=== PATIENT | female | born 1945 | race American Indian/Alaskan Native ===

== ENCOUNTER 2016-12-18 19:55 | Inpatient (IN) | payer MEDICARE ==
--- NOTE | 2016-12-18 20:28 | XRay Report ---
FINAL REPORT PROCEDURE: XR CHEST 1V AP TECHNIQUE: Chest radiograph anteroposterior view. CPT 40524 HISTORY: Shortness of breath COMPARISON: No prior studies are available for comparison. FINDINGS: Blunting of left CP angle is likely due to a moderate pleural effusion with atelectasis or pneumonia. Likely changes of COPD are present. Heart appears normal in size. No pneumothorax is seen. IMPRESSION: Moderate left pleural effusion is suspected with atelectasis or pneumonia. There may be changes of COPD.
[2016-12-18] MEDS ORDERED: DUONEB 0.5 MG-3 MG/3 ML SOLN IH ONE ×2 (20:37)
[2016-12-18 20:51] LABS: Basophils % (Auto) 0.7 % (0.0-1.8); Hematocrit 39.7 % (30.3-42.9); Hemoglobin 13.8 gm/dl (10.1-14.3); Mean Corpuscular HGB Conc 35 % (30-34); Mean Corpuscular Hemoglobin 30 pg (28-32); Mean Corpuscular Volume 87 fl (79-97); Platelet Count 177 K/mm3 (140-440); Red Blood Count 4.57 M/mm3 (3.65-5.03); White Blood Count 9.1 K/mm3 (4.5-11.0)
[2016-12-18 21:06] LABS: Anion Gap 15 mmol/L; Blood Urea Nitrogen 9 mg/dL (7-17); Calcium 9.2 mg/dL (8.4-10.2); Carbon Dioxide 31 mmol/L (22-30); Chloride 100.4 mmol/L (98-107); Glucose 117 mg/dL (65-100); Potassium 3.9 mmol/L (3.6-5.0); Sodium 142 mmol/L (137-145)
[2016-12-18] MEDS ORDERED: ROBITUSSIN AC PO ONE (21:17)
--- NOTE | 2016-12-18 21:20 | Emergency Department Report ---
HPI - General Chief Complaint: Dyspnea/Respdistress Time Seen by Provider: 12/18/16 21:05 - HPI HPI: This is a 71-year-old -Cam[place] female presents to the emergency department by tomorrow EMS service with complaint of a one-week history of shortness breath, one to 2 week history of a productive cough, as well as some intermittent wheezing and chest tightness. The patient has been using her albuterol inhaler and nebulized treatments at home without much relief. She has a history of COPD for which she is 2 L oxygen dependent at home. She also has a history of HIV and hypertension. She is a former smoker, having quit in 2010. She gets her primary care needs from [facility]. No recent travel or sick contacts at home. She denies any fever, nausea, vomiting, diaphoresis but does have lower extremity swelling. She denies any history of CT, CVA, PE/DVT, CHF. ED Past Medical Hx - Past Medical History Previous Medical History?: Yes Hx Hypertension: Yes Hx COPD: Yes Hx HIV: Yes - Surgical History Past Surgical History?: No - Social History Smoking Status: Former Smoker Substance Use Type: Alcohol, Prescribed ED Review of Systems ROS: Stated complaint: DIFFICULTY BREATHING Other details as noted in HPI Comment: All other systems reviewed and negative Constitutional: denies: chills, fever Eyes: denies: eye pain, eye discharge, vision change ENT: denies: ear pain, throat pain Respiratory: cough, shortness of breath, wheezing Cardiovascular: chest pain, edema Gastrointestinal: denies: abdominal pain, nausea, diarrhea Genitourinary: denies: urgency, dysuria, discharge Musculoskeletal: denies: back pain, joint swelling, arthralgia Skin: denies: rash, lesions Neurological: denies: headache, weakness, paresthesias Physical Exam - Physical Exam Vital Signs: Vital Signs 12/18/16 12/18/16 12/18/16 19:55 20:01 20:04 Temperature 97.9 F Pulse Rate 89 Pulse Rate [ Bases] Respiratory 20 Rate Respiratory Rate [Bases] Blood Pressure 159/87 159/87 Blood Pressure 159/87 [Right] O2 Sat by Pulse 91 92 94 Oximetry 12/18/16 12/18/16 12/18/16 20:13 20:23 20:42 Temperature Pulse Rate 101 H Pulse Rate [ 98 H Bases] Respiratory 20 Rate Respiratory 18 Rate [Bases] Blood Pressure Blood Pressure [Right] O2 Sat by Pulse 94 Oximetry Physical Exam: GENERAL: The patient is well-developed well-nourished. HEENT: Normocephalic. Atraumatic. Extraocular motions are intact. Patient has moist mucous membranes. Pupils equal reactive to light bilaterally. NECK: Supple. Trachea is midline. CHEST/LUNGS: Moderate wheezing throughout the chest. There is a productive cough heard during examination. No tachypnea or accessory muscle use. There is no respiratory distress noted. HEART/CARDIOVASCULAR: Regular. There is no tachycardia. There is no gallop rub or murmur. ABDOMEN: Abdomen is soft, nontender. Patient has normal bowel sounds. There is no abdominal distention. SKIN: Pitting edema to the bilateral lower extremities. NEURO: The patient is awake, alert, and oriented. The patient is cooperative. The patient has no focal neurologic deficits. The patient has normal speech. MUSCULOSKELETAL: There is no tenderness or deformity. There is no limitation range of motion. There is no evidence of acute injury. ED Course Vital Signs 12/18/16 12/18/16 12/18/16 19:55 20:01 20:04 Temperature 97.9 F Pulse Rate 89 Pulse Rate [ Bases] Respiratory 20 Rate Respiratory Rate [Bases] Blood Pressure 159/87 159/87 Blood Pressure 159/87 [Right] O2 Sat by Pulse 91 92 94 Oximetry 12/18/16 12/18/16 12/18/16 20:13 20:23 20:42 Temperature Pulse Rate 101 H Pulse Rate [ 98 H Bases] Respiratory 20 Rate Respiratory 18 Rate [Bases] Blood Pressure Blood Pressure [Right] O2 Sat by Pulse 94 Oximetry ED Medical Decision Making - Lab Data Result diagrams: 12/18/16 20:28 12/18/16 20:28 - EKG Data -: EKG Interpreted by Me EKG shows normal: sinus rhythm, axis, intervals, QRS complexes, ST-T waves ( nonspecific ST-T changes) Rate: tachycardia (102 bpm) - EKG Data When compared to previous EKG there are: previous EKG unavailable Interpretation: nonspecific ST-T wave dana - Radiology Data Radiology results: report reviewed, image reviewed interpreted by me: Chest x-ray shows some mild cardiomegaly but otherwise no overt pleural effusions, pneumothorax or pneumonia. CT angiography of the chest does not show any pulmonary embolism. There is a fatty infiltration of the liver and 2 hypodense lesions in the liver. These are of uncertain significance per more likely benign and malignant. - Medical Decision Making 71-year-old female presents emergency Department with 1-2 week history of shortness of breath, chest tightness, lower extremity swelling, cough. Labs show an elevation in the carbon dioxide and a elevated and equivocal d-dimer. While the chest x-ray did not show any acute process a CT angiography of the chest was also done. CT showed no sign of pulmonary embolism. There is liver lesions of uncertain significance and fatty infiltration of the liver. On physical exam the patient does have moderate bronchospasm. She was given some steroids, breathing treatments and still has some shortness of breath and wheezing. She'll be admitted to hospital for further evaluation and treatment has been accepted for admission by the hospitalist, Dr. Del Cid. - Differential Diagnosis CT, CHF, PE, Pneumonia, Asthma, COPD Critical Care Time: No Critical care attestation.: If time is entered above; I have spent that time in minutes in the direct care of this critically ill patient, excluding procedure time. ED Disposition Clinical Impression: COPD exacerbation, Bronchospasm, Chest tightness Hypertension Qualifiers: Hypertension type: essential hypertension Qualified Code(s): I10 - Essential ( primary) hypertension Disposition: OP ADMIT IP TO THIS HOSP Is pt being admited?: Yes Condition: Stable Time of Disposition: 00:19
[2016-12-18] MEDS ORDERED: NACL ONE (22:26)
--- NOTE | 2016-12-18 23:25 | Cat Scan Report ---
FINAL REPORT PROCEDURE: CT ANGIO CHEST TECHNIQUE: Computerized tomographic angiography of the chest was performed after the IV injection of iodinated nonionic contrast including image processing. The image data was postprocessed using 2-dimensional multiplanar reformatted (MPR) and 3-dimensional (MIP and/or volume rendered) techniques. HISTORY: SOB, elevated d-dimer COMPARISON: Chest x-ray from the same day FINDINGS: Mild changes of COPD are seen. There is mild scarring in the lung apices. No pneumothorax or pleural effusion is seen. Incidental note is made of fatty infiltration of the liver 2 vague hypodense area is present. One of these is seen anteriorly in the left hepatic lobe on image 113 of series 3 and the other is near the sona hepatitis in the right hepatic lobe measuring 1.7 cm. These may be hemangioma or focal areas greater fatty infiltration. Solid nodules cannot be excluded. Contrast-enhanced MRI of the liver may be useful on a nonemergent basis. Heart is likely normal in size. Trace pericardial effusion is seen. Calcified granuloma are seen in the mediastinum. The thoracic aorta is normal in size without evidence of dissection. No pulmonary embolus is seen. Prominent fat pads are seen with increased fat in the lower middle mediastinum. Findings could be due to steroid administration or abnormal cortisol metabolism. IMPRESSION: No pulmonary embolus is seen. There is fatty infiltration of the liver and 2 hypodense lesions in the liver. These are of uncertain significance but are more likely benign than malignant. Further evaluation with contrast-enhanced MRI using hemangioma protocol is recommended on a nonemergent basis.
--- NOTE | 2016-12-18 23:55 | History and Physical Report ---
History of Present Illness Date of examination: 12/18/16 Date of admission: 12/18/16 Chief complaint: Increasing SOB and wheezing for 3 days. History of present illness: HPI: This is a 71-year-old -Cypriot female presents to the emergency department by EMS service with complaint of a one-week history of shortness breath, one to 2 week history of a productive cough, as well as some intermittent wheezing and chest tightness. The patient has been using her albuterol inhaler and nebulized treatments at home without much relief. She has a history of COPD for which she is 2 L oxygen dependent at home. She also has a history of HIV and hypertension. She is a former smoker, having quit in 2010. No recent travel or sick contacts at home. She denies any fever, nausea, vomiting, diaphoresis but does have lower extremity swelling. She denies any history of [place], CVA, PE/DVT, CHF. Patient moved from [facility] to live with her daughter and attributes her increased resp distress in summer to allergies sec to pine trees and she wants to move back to [place].Moved to [place] 5 years ago. ED Past Medical Hx - Past Medical History Previous Medical History?: Yes Hx Hypertension: Yes Hx COPD: Yes Hx HIV: Yes - Surgical History Past Surgical History?: No - Social History Smoking Status: Former Smoker Substance Use Type: Alcohol, Prescribed ED Review of Systems ROS: Stated complaint: DIFFICULTY BREATHING Other details as noted in HPI Comment: All other systems reviewed and negative Constitutional: denies: chills, fever Eyes: denies: eye pain, eye discharge, vision change ENT: denies: ear pain, throat pain Respiratory: cough, shortness of breath, wheezing Cardiovascular: chest pain, edema Gastrointestinal: denies: abdominal pain, nausea, diarrhea Genitourinary: denies: urgency, dysuria, discharge Musculoskeletal: denies: back pain, joint swelling, arthralgia Skin: denies: rash, lesions Neurological: denies: headache, weakness, paresthesias 14 point review of systems done. Past History Past Medical History: COPD, hypertension, other (HIV) Medications and Allergies Allergies Allergy/AdvReac Type Severity Reaction Status Date / Time Penicillins AdvReac Unknown Unverified 09/05/14 12:11 Sulfa (Sulfonamide AdvReac Unknown Unverified 09/05/14 12:11 Antibiotics) Active Meds: Active Medications Heparin Sodium (Porcine) (Heparin) 5,000 unit SUB-Q Q8HR JERICA Review of Systems All systems: negative Exam - Constitutional Vitals: Temp Pulse Resp BP Pulse Ox 97.9 F 98 H 18 159/87 94 12/18/16 20:04 12/18/16 20:42 12/18/16 20:42 12/18/16 20:04 12/18/16 20:23 General appearance: Present: no acute distress, well-nourished - EENT Eyes: Present: PERRL ENT: hearing intact, clear oral mucosa - Neck Neck: Present: supple, normal ROM - Respiratory Respiratory effort: normal Respiratory: bilateral: diminished, rhonchi, wheezing - Cardiovascular Heart rate: 80 Rhythm: regular Heart Sounds: Present: S1 & S2. Absent: rub, click - Extremities Extremities: pulses symmetrical, No edema Peripheral Pulses: within normal limits - Abdominal General gastrointestinal: Present: soft, non-tender, non-distended, normal bowel sounds Female genitourinary: Present: normal - Integumentary Integumentary: Present: clear, warm, dry - Musculoskeletal Musculoskeletal: gait normal, strength equal bilaterally - Psychiatric Psychiatric: appropriate mood/affect, intact judgment & insight - Neurologic Neurologic: CNII-XII intact, moves all extremities - Allied Health Allied health notes reviewed: nursing Results - Labs CBC & Chem 7: 12/18/16 20:28 12/18/16 20:28 Labs: Laboratory Last Values WBC 9.1 K/mm3 (4.5-11.0) 12/18/16 20:28 RBC 4.57 M/mm3 (3.65-5.03) 12/18/16 20:28 Hgb 13.8 gm/dl (10.1-14.3) 12/18/16 20:28 Hct 39.7 % (30.3-42.9) 12/18/16 20:28 MCV 87 fl (79-97) 12/18/16 20:28 MCH 30 pg (28-32) 12/18/16 20:28 MCHC 35 % (30-34) H 12/18/16 20:28 RDW 15.0 % (13.2-15.2) 12/18/16 20:28 Plt Count 177 K/mm3 (140-440) 12/18/16 20:28 Lymph % (Auto) 24.9 % (13.4-35.0) 12/18/16 20: [place] % (Auto) 7.3 % (0.0-7.3) 12/18/16 20: Eos % (Auto) 13.0 % (0.0-4.3) H 12/18/16 20:28 Baso % (Auto) 0.7 % (0.0-1.8) 12/18/16 20: Lymph # 2.3 K/mm3 (1.2-5.4) 12/18/16 20: [place] # 0.7 K/mm3 (0.0-0.8) 12/18/16: Eos # 1.2 K/mm3 (0.0-0.4) H 12/18/16 20: Baso # 0.1 K/mm3 (0.0-0.1) 12/18/16 20: Seg Neutrophils % 54.1 % (40.0-70.0) 12/18/16 20: Seg Neutrophils # 4.9 K/mm3 (1.8-7.7) 12/18/16 20:28 D-Dimer 658.12 ng/mlDDU (0-234) H 12/18/16 21:31 Sodium 142 mmol/L (137-145) 12/18/16 20:28 Potassium 3.9 mmol/L (3.6-5.0) 12/18/16 20: Chloride 100.4 mmol/L (98-107) 12/18/16 20:28 Carbon Dioxide 31 mmol/L (22-30) H 12/18/16 20:28 Anion Gap 15 mmol/L 12/18/16 20:28 BUN 9 mg/dL (7-17) 12/18/16 20:28 Creatinine 0.9 mg/dL (0.7-1.2) 12/18/16 20: Estimated GFR > 60 ml/min 12/18/16 20: BUN/Creatinine Ratio 10.00 % 12/18/16 20: Glucose 117 mg/dL (65-100) H 12/18/16 20:28 Calcium 9.2 mg/dL (8.4-10.2) 06/10/17 20:28 Troponin T < 0.010 ng/mL (0.00-0.029) 12/18/16 20:28 NT-Pro-B Natriuret Pep 46.94 pg/mL (0-900) 12/18/16 21:31 - Imaging and Cardiology EKG: report reviewed (Sinus Tach) Chest x-ray: report reviewed (moderate left pleural effusion and small atelectasis. Possible pneumonia but more in favor of atelectasis) Assessment and Plan Assessment and plan: Assessment and plan: 1: Acute respiratory failure: Patient has oxygen level of 76 which is consistent with hypoxia. Patient started on duo nebs every 6 hours around-the- clock and every 3 hours when necessary. Patient also started on intravenous Levaquin 750 mg IV piggyback every 24 hours and Solu-Medrol 60 mg every 8 hours IV. Also Tessalon Perles for cough. 2: COPD exacerbation: Patient started on duo nebs IV Levaquin and IV Solu- Medrol. 3: Hypertension: Home medication not reconciled. We will start on losartan 100 mg once a day. Add antihypertensives as necessary. 4: HIV: No antiretrovirals mentioned. We will reconcile whenever available. 5: DVT prophylaxis: Patient started on Lovenox 40 mg subcutaneous once a day. Advance Directives: Yes (full code) VTE prophylaxis?: Chemical Plan of care discussed with patient/family: Yes
[2016-12-19] MEDS ORDERED: DUONEB 0.5 MG-3 MG/3 ML SOLN IH ONE (00:20)
[2016-12-19] MEDS ORDERED: DUONEB 0.5 MG-3 MG/3 ML SOLN IH PRN (01:42)
[2016-12-19] MEDS ORDERED: MILK OF MAGNESIA PO PRN (01:44)
[2016-12-19] MEDS ORDERED: DULCOLAX PR PRN (01:44)
[2016-12-19] MEDS ORDERED: ZOFRAN IV PRN (01:44)
[2016-12-19] MEDS ORDERED: PERCOCET 5/325 PO PRN (01:44)
[2016-12-19] MEDS ORDERED: TYLENOL PO PRN (01:44)
[2016-12-19] MEDS ORDERED: DILAUDID IV PRN (01:44)
[2016-12-19] MEDS ORDERED: PROVENTIL IH PRN (01:48)
[2016-12-19] MEDS: DUONEB 0.5 MG-3 MG/3 ML SOLN IH SCH ×4 (02:04→21:32)
[2016-12-19] MEDS: PEPCID PO SCH ×3 (02:14→22:42)
[2016-12-19] MEDS: TESSALON PERLES PO SCH ×3 (02:14→17:16)
[2016-12-19 03:16] LABS: ISTAT Base Excess 7; ISTAT HCO3 31.3; ISTAT PCO2 48.8 (35-45); ISTAT PH 7.414 (7.35-7.45); ISTAT PO2 76 (80-105); ISTAT SO2 95; ISTAT TCO2 33
[2016-12-19] MEDS ORDERED: HEPARIN SUB-Q SCH (06:00)
[2016-12-19] MEDS ORDERED: WATER FOR INJ (PF) 10 ML ONE (06:05)
[2016-12-19] MEDS: COZAAR PO SCH (10:07)
[2016-12-19] MEDS: LEVAQUIN 750MG/150ML 750 MG/150 ML BAG IV SCH (10:26)
--- NOTE | 2016-12-19 13:03 | Consultation ---
History of Present Illness Consult date: 12/19/16 Requesting physician: ELTON BRUNO Reason for consult: COPD, other (Acute Hypoxemic Respiratory Failure) History of present illness: PULMONARY/CCM CONSULT NOTE (Full dictation # [id number]) Please see dictated notes for full details Past History Past Medical History: COPD, hypertension, other (HIV) Medications and Allergies Allergies Allergy/AdvReac Type Severity Reaction Status Date / Time Penicillins AdvReac Unknown Unverified 09/05/14 12:11 Sulfa (Sulfonamide AdvReac Unknown Unverified 09/05/14 12:11 Antibiotics) Active Meds: Active Medications Acetaminophen (Tylenol) 650 mg PO Q4H PRN PRN Reason: Pain MILD(1-3)/Fever >100.5/BATISTA Albuterol (Proventil) 2.5 mg IH Q3HRT PRN PRN Reason: Wheezing Albuterol/Ipratropium (Duoneb 0.5 Mg-3 Mg/3 Ml Soln) 1 ampul IH Q6HRT [facility] Benzonatate (Tessalon Perles) 100 mg PO Q8H [facility] Last Admin: 12/19/16 10:06 Dose: 100 mg Bisacodyl (Dulcolax) 10 mg DC QDAY PRN PRN Reason: Constipation unrelieved by MOM Enoxaparin Sodium (Lovenox) 40 mg SUB-Q QDAY@2200 JERICA Famotidine (Pepcid) 20 mg PO BID [facility] Last Admin: 12/19/16 10:06 Dose: 20 mg Hydromorphone HCl (Dilaudid) 0.5 mg IV Q3H PRN PRN Reason: Pain , Severe (7-10) Levofloxacin/Dextrose (Levaquin 750mg/150ml) 750 mg in 150 mls @ 100 mls/hr IV Q24HR [facility] PRN Reason: Protocol Last Admin: 12/19/16 10:26 Dose: 100 mls/hr Losartan Potassium (Cozaar) 100 mg PO QDAY [facility] Last Admin: 12/19/16 10:07 Dose: 100 mg Magnesium Hydroxide (Milk Of Magnesia) 30 ml PO Q4H PRN PRN Reason: Constipation Methylprednisolone Sodium Succinate (Solu-Medrol) 60 mg IV Q8HR [facility] Last Admin: 12/19/16 06:12 Dose: 60 mg Ondansetron HCl (Zofran) 4 mg IV Q8H PRN PRN Reason: N/V unrelieved by Reglan Oxycodone/Acetaminophen (Percocet 5/325) 1 tab PO Q6H PRN PRN Reason: Pain, Moderate (4-6) Physical Examination Vital signs: Vital Signs Pulse Ox 91 12/18/16 19:55 Results - Laboratory Findings CBC and BMP: 12/18/16 20:28 12/18/16 20:28 ABG POC ABG pH 7.414 (7.35-7.45) 12/19/16 02:22 POC ABG pCO2 48.8 (35-45) H 12/19/16 02:22 POC ABG pO2 76 (80-105) L 12/19/16 02:22 POC ABG HCO3 31.3 12/19/16 02:22 POC ABG Total CO2 33 12/19/16 02:22 POC ABG O2 Sat 95 12/19/16 02:22 PT/INR, D-dimer D-Dimer 658.12 ng/mlDDU (0-234) H 12/18/16 21:31 Abnormal lab findings: Abnormal Labs 12/19/16 02:22 POC ABG pCO2 48.8 H POC ABG pO2 76 L
--- NOTE | 2016-12-19 15:27 | Progress Note ---
Assessment and Plan Assessment and plan: --Acute on chronic hypoxemic respiratory failure Oxygen titrated to O2 sats to more than 90%, nebulizers, steroids, antibiotics, cough medicine, inhalation steroids Pulmonary evaluation if needed --Acute COPD exacerbation/with acute bronchitis Nebulizers, oxygen, IV antibiotics and IV steroids --Hypertension; moderate control, continue current antihypertensives and when necessary medication, sodium diet --History of HIV; and follows health Department for her HIV medications, --Abnormal CT abdomen; fatty infiltration of the liver and 2 lesions in the liver[patient reports that they are old findings, we'll try to get reports from her previous physician] obtain MRI if needed --Morbid obesity; counseling done advised dietary modification and exercise as tolerated and weight reduction when medically stable --DVT prophylaxis with Lovenox Was the monitor the patient and adjust the management as needed Plan of care discussed with the patient as well as the nurse Possible discharge in 1-2 days if stable History Interval history: patient feels slightly better, complains of worsening shortness of breath Denies chest pain or palpitations Alert awake oriented 3 not in acute distress Hospitalist Physical - Constitutional Vitals: Temp Pulse Resp BP Pulse Ox 98.3 F 107 H 20 144/84 97 12/19/16 12:00 12/19/16 14:46 12/19/16 14:46 12/19/16 12:00 12/19/16 12:00 General appearance: Present: no acute distress, well-nourished, obese (morbidly obese) - EENT Eyes: Present: PERRL, EOM intact - Neck Neck: Present: supple, normal ROM - Respiratory Respiratory effort: normal Respiratory: bilateral: diminished, negative: rales, rhonchi, wheezing - Cardiovascular Rhythm: regular Heart Sounds: Present: S1 & S2 - Extremities Extremities: no ischemia, pulses intact, pulses symmetrical Peripheral Pulses: within normal limits - Abdominal General gastrointestinal: soft, non-tender, non-distended - Integumentary Integumentary: Present: clear, warm - Psychiatric Psychiatric: appropriate mood/affect, cooperative - Neurologic Neurologic: CNII-XII intact, moves all extremities Results - Labs CBC & Chem 7: 12/18/16 20:28 12/18/16 20:28 Labs: Laboratory Last Values WBC 9.1 K/mm3 (4.5-11.0) 12/18/16 20:28 RBC 4.57 M/mm3 (3.65-5.03) 12/18/16 20: Hgb 13.8 gm/dl (10.1-14.3) 12/18/16 20: Hct 39.7 % (30.3-42.9) 12/18/16 20: MCV 87 fl (79-97) 12/18/16 20: MCH 30 pg (28-32) 12/18/16 20: MCHC 35 % (30-34) H 12/18/16 20: RDW 15.0 % (13.2-15.2) 12/18/16: Plt Count 177 K/mm3 (140-440) 12/18/16: Lymph % (Auto) 24.9 % (13.4-35.0) 12/18/16: [place] % (Auto) 7.3 % (0.0-7.3) 12/18/16: Eos % (Auto) 13.0 % (0.0-4.3) H 12/18/16 20: Baso % (Auto) 0.7 % (0.0-1.8) 12/18/16: Lymph # 2.3 K/mm3 (1.2-5.4) 12/18/16: Walker # 0.7 K/mm3 (0.0-0.8) 12/18/16 20: Eos # 1.2 K/mm3 (0.0-0.4) H 12/18/16: Baso # 0.1 K/mm3 (0.0-0.1) 12/18/16 20: Seg Neutrophils % 54.1 % (40.0-70.0) 12/18/16 20: Seg Neutrophils # 4.9 K/mm3 (1.8-7.7) 12/18/16 20: D-Dimer 658.12 ng/mlDDU (0-234) H 12/18/16 21:31 POC ABG pH 7.414 (7.35-7.45) 12/19/16 02:22 POC ABG pCO2 48.8 (35-45) H 12/19/16 02:22 POC ABG pO2 76 (80-105) L 12/19/16 02:22 POC ABG HCO3 31.3 12/19/16 02:22 POC ABG Total CO2 33 12/19/16 02:22 POC ABG O2 Sat 95 12/19/16 02:22 POC ABG Base Excess 7 12/19/16 02:22 FiO2 28 % 12/19/16 02:22 Sodium 142 mmol/L (137-145) 12/18/16 20:28 Potassium 3.9 mmol/L (3.6-5.0) 12/18/16 20:28 Chloride 100.4 mmol/L (98-107) 12/18/16 20:28 Carbon Dioxide 31 mmol/L (22-30) H 12/18/16 20:28 Anion Gap 15 mmol/L 12/18/16 20:28 BUN 9 mg/dL (7-17) 12/18/16 20:28 Creatinine 0.9 mg/dL (0.7-1.2) 12/18/16 20:28 Estimated GFR > 60 ml/min 12/18/16 20:28 BUN/Creatinine Ratio 10.00 % 12/18/16 20:28 Glucose 117 mg/dL (65-100) H 12/18/16 20:28 Calcium 9.2 mg/dL (8.4-10.2) 12/18/16 20:28 Troponin T < 0.010 ng/mL (0.00-0.029) 12/18/16 20:28 NT-Pro-B Natriuret Pep 46.94 pg/mL (0-900) 12/18/16 21:31
[2016-12-19] MEDS: BROVANA NEBU IH SCH (21:36)
[2016-12-19] MEDS: LOVENOX SUB-Q SCH (22:42)
[2016-12-19] MEDS: SINGULAIR PO SCH (22:45)
[2016-12-20] MEDS: TESSALON PERLES PO SCH ×3 (02:23→17:14)
[2016-12-20] MEDS: DUONEB 0.5 MG-3 MG/3 ML SOLN IH SCH ×4 (02:26→19:55)
--- NOTE | 2016-12-20 03:20 | Consultation ---
PULMONARY CONSULTATION CONSULTING PHYSICIAN: Dr. Del Cid. REASON FOR CONSULTATION: COPD exacerbation. CHIEF COMPLAINT AND HISTORY OF PRESENT ILLNESS: The patient is a 71-year-old -Irish female. Past medical history is significant in this context for a diagnosis of COPD, who presented to the Emergency Room by emergency medical services complaining of a 1-week history of increasing shortness of breath. Also, she has noticed increase in cough in the preceding about 2 weeks, gradually increasing, mostly productive of clear thick whitish phlegm, but occasionally blood streaked specks in it. She is complaining of vague chest pain related to her coughing. She had been using her nebulizers at home. She also has oxygen at home, which she has been using; however, symptoms did not improve. As a result of the worsening symptoms, she came to the Emergency Room. In the Emergency Room, she was evaluated and essentially she was admitted for COPD exacerbation. She was wheezing. She was coughing. When I stopped by to see her, she was doing the same thing. She denied any nausea, vomiting, or overt aspiration prior to coming into the hospital. She denied any recent fevers or chills. She denied any sick contacts. She denied any recent long distance travel, but admitted to increasing lower extremity swelling bilaterally. That really again is as much of the history of presentation. I should mention she has a 24-jltt-dbkj-year smoking history, but has quit smoking for about 5-6 years now. PAST MEDICAL HISTORY: Significant again for hypertension and COPD. She is HIV positive. She is obese. She admits to a history of obstructive sleep apnea, for which she is not using her CPAP at this time. PAST SURGICAL HISTORY: Denied. MEDICATIONS: She was on at the time I stopped by to see her according to the medication administration record included the following: Tylenol 650 mg p.o. q. 4 hours p.r.n. mild pain, Proventil 2.5 mg inhaled q. 3 hours p.r.n. wheezing, DuoNeb treatments nebulized q. 6 hours, Tessalon Perles 100 mg p.o. q.8 hours scheduled, Lovenox 40 mg subcutaneous daily, Pepcid 20 mg p.o. b.i.d., Dilaudid 0.5 mg IV q. 3 hours p.r.n. severe pain, Levaquin 750 mg IV daily, Cozaar 100 mg p.o. daily, milk of magnesia p.r.n., Solu-Medrol 60 mg IV q. 8 hours, Zofran 4 mg IV q. 8 hours p.r.n. nausea and vomiting and Percocet 1 tablet 5/325 mg p.o. q. 6 hours p.r.n. moderate pain. ALLERGIES: TO PENICILLINS AND TO SULFA DRUGS. Nature of this allergy is unknown. DIET: Obese lady. Denies significant weight loss or gain in the preceding few weeks to months. FAMILY AND SOCIAL HISTORY: Lives in the community. She has a 90-pppy-cire-year tobacco smoking history, quit smoking about 6 years ago. Family history otherwise is noncontributory. Denies alcohol or illicit drug use or abuse. REVIEW OF SYSTEMS: No loss of consciousness. No new-onset seizures. No new onset focal weakness. No gross hematochezia or melena. No gross hematuria or dysuria. No hematemesis. She had the streaky hemoptysis. No palpitations. No seizures. Complete review of systems obtained. Pertinent positives and/or negatives as in body of history above, otherwise noncontributory. PHYSICAL EXAMINATION: VITAL SIGNS: At presentation, she was afebrile, temperature 97.9 Fahrenheit, pulse 103, respiratory rate 20, blood pressure 159/87 and oxygen sats 92%, inspired oxygen concentration was not recorded. HEAD, EYES, EARS, NOSE AND THROAT: Pupils are equal, round, about 4 mm, reactive to light. Extraocular muscle movements are intact. Oropharynx is a Mallampati #3 oropharynx. No significant posterior oropharyngeal erythema. Grossly, no palpable lymph nodes in the supraclavicular or submandibular lymph node chains. No gross jugular venous distention. LUNGS: Auscultation of both lung thomason, expiratory rhonchi and rales bilaterally. Occasional faint wheezing. Prolonged expiratory phase. HEART: Sounds 1 and 2 were heard at the time of my evaluation. They were regular in rate and rhythm. ABDOMEN: Soft, full. Bowel sounds are positive, nontender. EXTREMITIES: Without overt digital clubbing or cyanosis. She has trace to 1+ bipedal pitting edema. NEUROLOGICAL: The exam was grossly nonfocal. LABORATORY DATA: From my review are as follows: White cell count 9100, hemoglobin 13.8, hematocrit 39.7, platelets 177. No manual differential. D-dimer was elevated at 658. Arterial blood gas showed a pH of 7.41, pCO2 of 49, pO2 of 76 that was on 2 liters nasal cannula. Serum sodium 142, potassium 3.9, chloride 100, bicarbonate 31, BUN 9, creatinine 0.9, glucose 117. Troponin and BNP were within normal limits. Blood cultures were drawn. No growth to date. IMAGING DATA: Chest x-ray was done. I have reviewed the interpretation. Mentioned was moderate left pleural effusion with possible atelectasis. CTA of her chest was done. I am reviewing those films. The interpretation mentions 2 hypodense lesions within the liver. No PE. I do not see any gross filling defects indeed consistent with pulmonary emboli. I also do not see this pleural effusion as mentioned on the chest x-ray; however, there appears to be an area of atelectatic lung in the left lower lobe region. Lung windows motion artifact, septal or paraseptal emphysema, particularly in the upper lobes. No gross pneumothorax. No gross bony fractures. ASSESSMENT AND PLAN: We have an elderly lady in with an acute chronic obstructive pulmonary disease exacerbation. I do agree with current therapy. We will continue bronchodilators. I will add long-acting bronchodilators into the mix. We will continue systemic steroids. Hold on inhaled corticosteroids at this point in time. I believe there is also allergy component to her symptoms. I will go with Zyrtec actually and see if it works better than the loratadine that she uses at home. We will continue the empiric antibiotic therapy. I will send sputum for gram stain cultures and sensitivities. We will deploy bilevel positive airway pressure therapy at bedtime for her sleep apnea issues ____ her to follow up in the clinic post-discharge. She is appropriately on GI and DVT prophylaxis. I will complete this venous thromboembolic workup with lower extremity Dopplers in light of the swelling. Flu and pneumonia vaccination will be per protocol. I will also encourage her that she does not have any lung nodules. She does have lesions in her liver and those were needed to be followed up. Thank you very much for the consult. Dr. Del Cid will follow along and make further recommendations as picture progresses/becomes clearer. Continued tobacco abstinence was encouraged. JOB# [id number] LIOR/NTS
--- NOTE | 2016-12-20 03:32 | Admit Criteria Form ---
Admission Criteria Documentation: COPD Clinical Indications for Admission to Inpatient Care (Place 'X' for any and all applicable criteria): Admission is indicated for ANY ONE of the following (1)(2)(3): [X ]I. Acute exacerbation by high-risk comorbidity (e.g., pneumonia, dysrhythmia, heart failure, pleural effusion, pneumothorax) or severe underlying COPD (e.g., steroid dependent) [ ]II. Inpatient admission required rather than observation care (see Chronic Obstructive Pulmonary Disease: Observation Care) because of ANY ONE of the following: [ ]a) New or pre-existing signs or symptoms of COPD (eg, dyspnea or Tachypnea at rest or with minimal activity) that persist despite outpatient and observation care treatment [ ]b) New-onset hypoxemia (room air SaO2 less than 90%, PO2 less than 60 mm Hg (8.0 kPa)) that persists despite outpatient and observation care treatment [ ]c) Worsening of pre-existing hypoxemia (eg, new or increased requirement for supplemental oxygen to maintain oxygenation at baseline level) that persists despite outpatient and observation care treatment, with oxygen treatment needs performable only in acute inpatient setting [ ]d) Hypercarbia (PCO2 greater than 40 mm Hg (5.3 kPa))-induced respiratory acidosis (pH less than 7.35) that persists despite outpatient and observation care treatment [ ]e) Supplemental oxygen or respiratory treatments for over 24 hours that are performable only in acute inpatient setting [ ]f) Chest tube placement with active evacuation (e.g., suction, drainage) (5) [ ]g) Other condition, treatment or monitoring requiring inpatient admission [ ]III. Planned invasive surgical or diagnostic procedures requiring acute- care hospitalization [X ]IV. Acute respiratory failure (e.g., uncompensated hypercarbia, severe hypoxemia) [ ]V. Severe comorbid condition (e.g., severe steroid myopathy, acute vertebral fracture) that has acutely worsened pulmonary function [ ]. Confusion state, lethargy, obtundation, stupor or coma Extended stay beyond goal length of stay may be needed for (31)(32): [ ]a ) Respiratory Failure. [ ]b) Severe or persisting hypoxemia or hypercarbia [ ]c) Severe or persistent dyspnea [ ]d) Comorbidities (e.g. chronic heart failure, atrial fibrillation with rapid response, pneumonia) [ ]e) Malnutrition The original [facility] content created by [facility] has been revised. The portions of the content which have been revised are identified through the use of italic text or in bold, and [facility] has neither reviewed nor approved the modified material. All other unmodified content is copyright [facility]. Please see references footnoted in the original [facility] edition 2016 Admission Criteria Met: Yes
[2016-12-20 07:20] LABS: Basophils % (Auto) 0.2 % (0.0-1.8); Hemoglobin 13.8 gm/dl (10.1-14.3); Mean Corpuscular HGB Conc 34 % (30-34); Mean Corpuscular Hemoglobin 30 pg (28-32); Mean Corpuscular Volume 86 fl (79-97); Platelet Count 182 K/mm3 (140-440); Red Blood Count 4.63 M/mm3 (3.65-5.03); Red Cell Distribution Width 14.7 % (13.2-15.2); White Blood Count 13.7 K/mm3 (4.5-11.0)
[2016-12-20 07:33] LABS: Alanine Aminotransferase 35 units/L (7-56); Albumin 3.7 g/dL (3.9-5); Alkaline Phosphatase 77 units/L (35-129); Anion Gap 17 mmol/L; BUN/Creatinine Ratio 16.25; Blood Urea Nitrogen 13 mg/dL (7-17); Calcium 9.6 mg/dL (8.4-10.2); Carbon Dioxide 31 mmol/L (22-30); Chloride 98.2 mmol/L (98-107); Glucose 169 mg/dL (65-100); Potassium 3.8 mmol/L (3.6-5.0); Sodium 142 mmol/L (137-145); Total Protein 7.4 g/dL (6.3-8.2)
--- NOTE | 2016-12-20 07:50 | Vascular Lab Report ---
LOWER EXTREMITY VENOUS DUPLEX: REASON FOR EXAM: Swelling of the lower extremities. COMMENTS ON THE RIGHT: All veins visualized are freely compressible without evidence of internal echogenicity. Flow is spontaneous and phasic throughout. COMMENTS ON THE LEFT: All veins visualized are freely compressible without evidence of internal echogenicity. Flow is spontaneous and phasic throughout. IMPRESSION: No evidence of acute or chronic deep venous thrombosis in either lower extremity.
[2016-12-20] MEDS: BROVANA NEBU IH SCH ×2 (08:22→19:54)
[2016-12-20] MEDS: LEVAQUIN 750MG/150ML 750 MG/150 ML BAG IV SCH (09:42)
[2016-12-20] MEDS: COZAAR PO SCH (09:43)
[2016-12-20] MEDS: PEPCID PO SCH ×2 (09:43→21:08)
[2016-12-20] MEDS ORDERED: DILAUDID IV PRN (17:11)
--- NOTE | 2016-12-20 17:16 | Progress Note ---
Assessment and Plan Assessment and plan: --Acute on chronic hypoxemic respiratory failure Oxygen titrated to O2 sats to more than 90%, nebulizers, steroids, antibiotics, cough medicine, inhalation steroids Pulmonary evaluation if needed --Acute COPD exacerbation/with acute bronchitis Nebulizers, oxygen, IV antibiotics and IV steroids --Hypertension; moderate control, continue current antihypertensives and when necessary medication, sodium diet --History of HIV; and follows health Department for her HIV medications, --Abnormal CT abdomen; fatty infiltration of the liver and 2 lesions in the liver[patient reports that they are old findings, we'll try to get reports from her previous physician] obtain MRI if needed --Morbid obesity; counseling done advised dietary modification and exercise as tolerated and weight reduction when medically stable --DVT prophylaxis with Lovenox Was the monitor the patient and adjust the management as needed Plan of care discussed with the patient as well as the nurse Possible discharge in 1-2 days if stable History Interval history: Patient seen and evaluated this morning medical records reviewed No new events reported by the nursing staff, patient complains of mild shortness of breath significantly improved since yesterday Alert awake oriented 3 not in acute distress Vital signs reviewed stable Hospitalist Physical - Constitutional Vitals: Temp Pulse Resp BP Pulse Ox 97.3 F L 96 H 17 163/91 93 12/20/16 10:20 12/20/16 13:31 12/20/16 13:31 12/20/16 10:20 12/20/16 11:02 General appearance: Present: no acute distress, well-nourished, obese (morbidly obese) - EENT Eyes: Present: PERRL, EOM intact - Neck Neck: Present: supple, normal ROM - Respiratory Respiratory effort: normal Respiratory: bilateral: diminished, rhonchi, negative: rales, wheezing - Cardiovascular Rhythm: regular Heart Sounds: Present: S1 & S2 - Extremities Extremities: no ischemia, pulses intact, pulses symmetrical Peripheral Pulses: within normal limits - Abdominal General gastrointestinal: soft, non-tender, non-distended, normal bowel sounds - Integumentary Integumentary: Present: clear, warm - Psychiatric Psychiatric: appropriate mood/affect, cooperative - Neurologic Neurologic: CNII-XII intact, moves all extremities Results - Labs CBC & Chem 7: 12/20/16 06:36 12/20/16 06:36 Labs: Laboratory Last Values WBC 13.7 K/mm3 (4.5-11.0) H 12/20/16 06:36 RBC 4.63 M/mm3 (3.65-5.03) 12/20/16 06:36 Hgb 13.8 gm/dl (10.1-14.3) 12/20/16 06:36 Hct 40.0 % (30.3-42.9) 12/20/16 06:36 MCV 86 fl (79-97) 12/20/16 06:36 MCH 30 pg (28-32) 12/20/16 06:36 MCHC 34 % (30-34) 12/20/16 06:36 RDW 14.7 % (13.2-15.2) 12/20/16 06:36 Plt Count 182 K/mm3 (140-440) 12/20/16 06:36 Lymph % (Auto) 11.7 % (13.4-35.0) L 12/20/16 06:36 [place] % (Auto) 5.1 % (0.0-7.3) 12/20/16 06:36 Eos % (Auto) 0.0 % (0.0-4.3) 12/20/16 06:36 Baso % (Auto) 0.2 % (0.0-1.8) 12/20/16 06:36 Lymph # 1.6 K/mm3 (1.2-5.4) 12/20/16 06:36 [place] # 0.7 K/mm3 (0.0-0.8) 12/20/16 06:36 Eos # 0.0 K/mm3 (0.0-0.4) 12/20/16 06:36 Baso # 0.0 K/mm3 (0.0-0.1) 12/20/16 06:36 Seg Neutrophils % 83.0 % (40.0-70.0) H 12/20/16 06:36 Seg Neutrophils # 11.4 K/mm3 (1.8-7.7) H 12/20/16 06:36 D-Dimer 658.12 ng/mlDDU (0-234) H 12/18/16 21:31 POC ABG pH 7.414 (7.35-7.45) 12/19/16 02:22 POC ABG pCO2 48.8 (35-45) H 12/19/16 02:22 POC ABG pO2 76 (80-105) L 12/19/16 02:22 POC ABG HCO3 31.3 12/19/16 02:22 POC ABG Total CO2 33 12/19/16 02:22 POC ABG O2 Sat 95 12/19/16 02:22 POC ABG Base Excess 7 12/19/16 02:22 FiO2 28 % 12/19/16 02:22 Sodium 142 mmol/L (137-145) 12/20/16 06:36 Potassium 3.8 mmol/L (3.6-5.0) 12/20/16 06:36 Chloride 98.2 mmol/L (98-107) 12/20/16 06:36 Carbon Dioxide 31 mmol/L (22-30) H 12/20/16 06:36 Anion Gap 17 mmol/L 12/20/16 06:36 BUN 13 mg/dL (7-17) 12/20/16 06:36 Creatinine 0.8 mg/dL (0.7-1.2) 12/20/16 06:36 Estimated GFR > 60 ml/min 12/20/16 06:36 BUN/Creatinine Ratio 16.25 % 12/20/16 06:36 Glucose 169 mg/dL (65-100) H 12/20/16 06:36 Calcium 9.6 mg/dL (8.4-10.2) 12/20/16 06:36 Total Bilirubin 0.20 mg/dL (0.1-1.2) 12/20/16 06:36 AST 46 units/L (5-40) H 12/20/16 06:36 ALT 35 units/L (7-56) 12/20/16 06:36 Alkaline Phosphatase 77 units/L (35-129) 12/20/16 06:36 Troponin T < 0.010 ng/mL (0.00-0.029) 12/18/16 20:28 NT-Pro-B Natriuret Pep 46.94 pg/mL (0-900) 12/18/16 21:31 Total Protein 7.4 g/dL (6.3-8.2) 12/20/16 06:36 Albumin 3.7 g/dL (3.9-5) L 12/20/16 06:36 Albumin/Globulin Ratio 1.0 % 12/20/16 06:36
--- NOTE | 2016-12-20 19:13 | Progress Note ---
Assessment and Plan Patent resting on nasal canula. Still complaining shortness of breath.Patient has history of COPD, Hypertension and HIV +.O2 saturation 96% on 2 litres O2. - Patient Problems (1) COPD exacerbation Current Visit: Yes Status: Acute Plan to address problem: O2 2 litres via nasal canula. Albuterol/atrovent aerosol treatments q 6 hours. Continue I/V solumedral. Continue S/C Lovenox. Continue famotidine. Continue Levaquine. (2) Hypertension Current Visit: Yes Status: Acute Qualifiers: Hypertension type: essential hypertension Qualified Code(s): I10 - Essential (primary) hypertension Plan to address problem: Management as per primary care. (3) Sleep apnea Current Visit: Yes Status: Acute Qualifiers: Sleep apnea type: S Plan to address problem: Patient said she has sleep study as out patient. She said she is going to follow with brine tank operator as outpatient. Empirically placing her on BIPAP 16/6, rate 20, FIO2 28%. (4) HIV (human immunodeficiency virus infection) Current Visit: Yes Status: Acute Plan to address problem: Management as per primary and infectious diseases. Subjective Date of service: 12/20/16 Interval history: Patent resting on nasal canula. Still complaining shortness of breath.Patient has history of COPD, Hypertension and HIV +.O2 saturation 96% on 2 litres O2. Objective Vital Signs - 12hr 12/20/16 12/20/16 12/20/16 08:23 08:24 10:20 Temperature 97.3 F L Pulse Rate Pulse Rate [ 97 H Anterior Bilateral Throughout] Pulse Rate [ Left Radial] Pulse Rate [ 94 H Right Radial] Respiratory 16 Rate Respiratory 18 Rate [Anterior Bilateral Throughout] Blood Pressure [Left Arm] Blood Pressure 163/91 [Right Radial Artery] O2 Sat by Pulse 95 93 Oximetry 12/20/16 12/20/16 12/20/16 10:30 11:02 13:30 Temperature Pulse Rate 88 Pulse Rate [ 95 H Anterior Bilateral Throughout] Pulse Rate [ 94 H Left Radial] Pulse Rate [ Right Radial] Respiratory 16 Rate Respiratory 18 Rate [Anterior Bilateral Throughout] Blood Pressure [Left Arm] Blood Pressure [Right Radial Artery] O2 Sat by Pulse 93 Oximetry 12/20/16 12/20/16 13:31 18:58 Temperature Pulse Rate Pulse Rate [ 96 H Anterior Bilateral Throughout] Pulse Rate [ Left Radial] Pulse Rate [ Right Radial] Respiratory Rate Respiratory 17 Rate [Anterior Bilateral Throughout] Blood Pressure 192/92 [Left Arm] Blood Pressure [Right Radial Artery] O2 Sat by Pulse Oximetry Constitutional: no acute distress, alert Eyes: non-icteric ENT: oropharynx moist Neck: supple, no lymphadenopathy Ascultation: Bilateral: diminished breath sounds (Prolonged expiratory phase.) Cardiovascular: regular rate and rhythm Gastrointestinal: normoactive bowel sounds, soft, non-tender Integumentary: normal Extremities: no cyanosis, edema (Trace edema.) Neurologic: normal mental status, non-focal exam, pupils equal and round, CN II- XII normal Psychiatric: mood appropriate CBC and BMP: 12/20/16 06:36 12/20/16 06:36 ABG, PT/INR, D-dimer: ABG POC ABG pH 7.414 (7.35-7.45) 12/19/16 02:22 POC ABG pCO2 48.8 (35-45) H 12/19/16 02:22 POC ABG pO2 76 (80-105) L 12/19/16 02:22 POC ABG HCO3 31.3 12/19/16 02:22 POC ABG Total CO2 33 12/19/16 02:22 POC ABG O2 Sat 95 12/19/16 02:22 PT/INR, D-dimer D-Dimer 658.12 ng/mlDDU (0-234) H 12/18/16 21:31 Abnormal lab findings: Abnormal Labs 12/19/16 12/20/16 12/20/16 02:22 06:36 06:36 WBC 13.7 H Lymph % (Auto) 11.7 L Seg Neutrophils % 83.0 H Seg Neutrophils # 11.4 H POC ABG pCO2 48.8 H POC ABG pO2 76 L Carbon Dioxide 31 H Glucose 169 H AST 46 H Albumin 3.7 L
[2016-12-20] MEDS ORDERED: APRESOLINE IV PRN (20:53)
[2016-12-20] MEDS: LOVENOX SUB-Q SCH (21:08)
[2016-12-20] MEDS: SINGULAIR PO SCH (21:08)
[2016-12-21] MEDS: DUONEB 0.5 MG-3 MG/3 ML SOLN IH SCH ×3 (02:15→13:49)
[2016-12-21] MEDS: TESSALON PERLES PO SCH ×2 (02:59→10:39)
[2016-12-21] MEDS: BROVANA NEBU IH SCH (08:14)
[2016-12-21] MEDS: LEVAQUIN 750MG/150ML 750 MG/150 ML BAG IV SCH (10:38)
[2016-12-21] MEDS: PEPCID PO SCH (10:38)
[2016-12-21] MEDS: COZAAR PO SCH (10:38)
--- NOTE | 2016-12-21 11:29 | Discharge Summary ---
Providers - Providers Date of Admission: 12/18/16 23:40 Date of discharge: 12/21/16 Attending physician: VANESSA RING 12/19/16 01:44 Consult to Physician [CONS] Routine Consulting Provider: TOMEKA SCHNEIDER Reason For Exam: Copd exacerbation Place consult to:: pulmon Notified:: a service Phone number called:: [phone] Was contact made?: Yes If yes, spoke with:: natalia Time called:: 09:02 Primary care physician: FINANCIAL MARKET DEALER Hospitalization Condition: Stable Disposition: DC-01 TO HOME OR SELFCARE Core Measure Documentation - Palliative Care Palliative Care/ Comfort Measures: Not Applicable - Core Measures Any of the following diagnoses?: none Exam - Constitutional Vitals: Temp Pulse Resp BP Pulse Ox 97.9 F 76 20 142/77 96 12/21/16 07:32 12/21/16 08:31 12/21/16 08:32 12/21/16 07:32 12/21/16 08:32 General appearance: Present: no acute distress, well-nourished - EENT Eyes: Present: PERRL, EOM intact - Neck Neck: Present: supple, normal ROM - Respiratory Respiratory effort: normal Respiratory: right: other, bilateral: diminished, negative: rales, rhonchi, wheezing - Cardiovascular Rhythm: regular Heart Sounds: Present: S1 & S2 - Extremities Extremities: no ischemia, pulses intact, pulses symmetrical Peripheral Pulses: within normal limits - Abdominal General gastrointestinal: Present: soft, non-tender, non-distended, normal bowel sounds - Integumentary Integumentary: Present: clear, warm - Musculoskeletal Musculoskeletal: strength equal bilaterally - Psychiatric Psychiatric: appropriate mood/affect, cooperative - Neurologic Neurologic: CNII-XII intact, moves all extremities Plan Follow up with: PRIMARY CARE, [Primary Care Provider] - 3-5 Days Forms: Discharge Signature Page Prescriptions: Benzonatate [Tessalon Perles] 100 mg PO Q8H #30 capsule Levofloxacin [Levaquin TAB] 750 mg PO Q24HR #7 tablet Losartan [Cozaar] 100 mg PO QDAY #30 tablet Montelukast [Singulair] 10 mg PO QHS #30 tablet oxyCODONE /ACETAMINOPHEN [Percocet 5/325 mg] 1 tab PO Q12H PRN #10 tablet PRN Reason: Pain, Moderate (4-6) Prednisone [predniSONE 10 mg (6-Day Pack, 21 Tabs)] 10 mg PO .TAPER #1 tab.ds.pk
[2016-12-21 12:30] VITALS: BP 153/107
[2016-12-22] MEDS ORDERED: LEVAQUIN PO SCH (10:00)
== END 2016-12-21 15:07 | disposition home health service (06) | DRG 189 ==
LOC: ED 19:55 → 4A 23:40
PROVIDERS: ADMIT Internal Medicine; ATTEND Internal Medicine
PROC: 4A033R1 Measurement of Arterial Saturation, Peripheral, Percutaneous Approach (ICD-10-PCS; principal; 2016-12-18)
DX: J96.21 Acute and chronic respiratory failure with hypoxia (principal); J44.1 Chronic obstructive pulmonary disease with (acute) exacerbation; J44.0 Chronic obstructive pulmonary disease with (acute) lower respiratory infection; I10 Essential (primary) hypertension; J20.9 Acute bronchitis, unspecified; E66.01 Morbid (severe) obesity due to excess calories; G47.30 Sleep apnea, unspecified; Z88.0 Allergy status to penicillin; Z88.2 Allergy status to sulfonamides; Z87.891 Personal history of nicotine dependence; Z68.39 Body mass index [BMI] 39.0-39.9, adult; Z71.3 Dietary counseling and surveillance
CPT/HCPCS: 36415; 36600; 71010; 71275; 80048; 80053; 82803; 82962; 83880; 84484; 85025; 85379; 87040; 87205; 93005; 93010; 93970; 94640; 94760; 96374; J0360; J1650; J1956; J2920; J2930; Q9967